=== PATIENT | male | born 1980 | race Caucasian/White ===

== ENCOUNTER 2016-07-28 09:07 | Emergency (ER) | payer BC, SELFPAY ==
[2016-07-28] MEDS ORDERED: HYDROcodone/Acetaminophen 10/325 mg Tablet ONE (09:28)
[2016-07-28] MEDS ORDERED: Ibuprofen 800 MG TAB ONE (09:29)
[2016-07-28 09:42] LABS: #Basophils 0.1 thou/uL (0.0-0.2); #Eosinphils 0.3 thou/uL (0.0-0.7); #Lymphocytes 1.9 thou/uL (1.20-3.40); #Monocytes 0.3 thou/uL (0.11-0.59); #Neutrophils 6.1 thou/uL (1.40-6.50); %Basophils 0.6 % (0.0-1.0); %Eosinophils 3.1 % (0.0-10.0); %Neutrophils 70.3 % (42.0-75.0); Hemoglobin 15.9 g/dL (14.0-18.0); Mean Corpuscular HGB CONC 33.9 g/dL (32.0-36.0); Mean Platelet Volume 7.3 fL (7.4-10.4); Platelet Count 284 thou/uL (130-400); RBC Distribution Width 11.3 % (11.5-14.5); Red Blood Cell (RBC) Count 4.67 mill/uL (4.70-6.10); White Blood Cell (WBC) Count 8.6 thou/uL (4.8-10.8)
[2016-07-28 09:55] LABS: Anion Gap 14 mmol/L (10-20); BUN (Urea Nitrogen) 17 mg/dL (8.9-20.6); Calc. Creatinine Clearance 0 mL/min (70-130); Calcium 9.2 mg/dL (7.8-10.44); Carbon Dioxide 25 mmol/L (22-29); Chloride 103 mmol/L (98-107); Estimated GFR-MDRD Greater than 90; Glucose 109 mg/dL (70-105); Sodium 138 mmol/L (136-145); Uric Acid 7.7 mg/dL (3.5-7.2)
== END 2016-07-28 10:30 | disposition home or self-care (01) ==
LOC: BURERS 09:07
DX: M10.9 Gout, unspecified (principal); F17.220 Nicotine dependence, chewing tobacco, uncomplicated; F17.210 Nicotine dependence, cigarettes, uncomplicated
CPT/HCPCS: 36415; 80048; 84550; 85025; 99283

== ENCOUNTER 2017-09-25 09:11 | Emergency (ER) | payer SELFPAY ==
--- NOTE | 2017-09-25 19:37 | RAD ---
RIGHT SHOULDER THREE VIEWS: 09/25/17 No fracture, dislocation, or AC joint widening was seen. The visible adjacent ribs appear intact. IMPRESSION: No acute findings. POS: HOME
--- NOTE | 2017-09-25 19:40 | RAD ---
RIGHT HAND THREE VIEWS: 09/25/17 No fracture, dislocation, or joint abnormality was seen. The carpals appear intact as well. IMPRESSION: No acute finding. POS: HOME
--- NOTE | 2017-09-25 19:41 | RAD ---
RIGHT HUMERUS TWO VIEWS 09/25/17 No fracture was evident. The humerus appeared intact. IMPRESSION: No acute finding. POS: HOME
== END 2017-09-25 10:09 | disposition home or self-care (01) ==
LOC: BURERS 09:11
DX: S40.011A Contusion of right shoulder, initial encounter (principal); S60.221A Contusion of right hand, initial encounter; F17.220 Nicotine dependence, chewing tobacco, uncomplicated; W17.89XA Other fall from one level to another, initial encounter

== ENCOUNTER 2021-12-15 14:52 | Emergency (ER) | payer SELFPAY ==
[2021-12-15] MEDS ORDERED: Tetracaine 0.5% PF 4 ML BOT ONE (15:01)
[2021-12-15] MEDS ORDERED: Fluorescein Opthalmic Strip ONE (15:01)
[2021-12-15] MEDS ORDERED: Neomycin-Polymyxin-Hc 7.5 ML BOT ONE (16:00)
== END 2021-12-15 16:07 | disposition home or self-care (01) ==
LOC: BURERS 14:52
DX: T15.02XA Foreign body in cornea, left eye, initial encounter (principal); F17.210 Nicotine dependence, cigarettes, uncomplicated
CPT/HCPCS: 65210

== ENCOUNTER 2024-02-22 04:46 | Emergency (ER) | payer OTHER, SELFPAY ==
[2024-02-22] MEDS ORDERED: Cyclobenzaprine 10 MG TAB ONE (05:20)
[2024-02-22] MEDS ORDERED: Naproxen 500 MG TAB ONE (05:20)
== END 2024-02-22 06:32 | disposition home or self-care (01) ==
LOC: BURERS 04:46
DX: S39.012A Strain of muscle, fascia and tendon of lower back, initial encounter (principal); M62.830 Muscle spasm of back; F17.210 Nicotine dependence, cigarettes, uncomplicated; W20.8XXA Other cause of strike by thrown, projected or falling object, initial encounter; Y93.H2 Activity, gardening and landscaping
CPT/HCPCS: 99283